=== PATIENT | male | born 1990 | race Caucasian/White ===

== ENCOUNTER 2020-11-11 04:09 | Emergency (ER) | payer OTHER ==
[~2020-11-11] VITALS: Ht 190.5 cm; Wt 106.6 kg
--- NOTE | 2020-11-11 04:21 | NUR ---
PT [id number]. BIBRA FROM HOME C/O ANXIOUS. PT ADMITS TO TAKING 4X30MG ADDERAL XPAST 3 DAYS +DRINKING +MARIJUANA
[2020-11-11] MEDS ORDERED: LORAZEPAM INJ 2 MG/ML VIAL ONE (04:24)
[2020-11-11] MEDS ORDERED: LORAZEPAM INJ 2 MG/ML VIAL IM ONE (04:30)
[2020-11-11] MEDS ORDERED: LORAZEPAM 1 MG TABLET ONE (05:08)
--- NOTE | 2020-11-11 05:24 | NUR ---
Patient discharged to home in stable condition. Written and verbal after care instructions given. Patient verbalizes understanding of instruction. Pt discharged, picked up by brother and girlfriend.
[2020-11-11 05:25] VITALS: BP 135/86
[2020-11-11] MEDS ORDERED: LORAZEPAM 1 MG TABLET PO ONE (05:30)
== END 2020-11-11 05:25 | disposition home or self-care (01) ==
LOC: ER 04:11
DX: F19.10 Other psychoactive substance abuse, uncomplicated (principal); F41.9 Anxiety disorder, unspecified; F32.9 Major depressive disorder, single episode, unspecified
CPT/HCPCS: 96372; 99283; J2060